=== PATIENT | male | born 1990 | race Caucasian/White ===

== ENCOUNTER 2018-07-20 17:49 | Observation (INO) | payer BC ==
[~2018-07-20] VITALS: Ht 182.9 cm; Wt 121.6 kg
[2018-07-20] MEDS ORDERED: VYVANSE70 MG PO (18:19)
[2018-07-20] MEDS ORDERED: CLONAZEPAM1 MG PO (18:19)
[2018-07-20] MEDS ORDERED: RISPERDAL4 MG PO (18:19)
[2018-07-20 18:38] LABS: BASOPHILS # (AUTO) 0.1 (0.0-0.1); BASOPHILS % 0.5 % (0.0-1.0); EOSINOPHILS # (AUTO) 0.4 (0.0-0.4); EOSINOPHILS % 3.9 % (0.0-6.0); HEMATOCRIT 42.1 % (38.2-49.6); HEMOGLOBIN 14.3 g/dL (14.0-18.0); LYMPHOCYTES # (AUTO) 2.5 (1.0-3.2); LYMPHOCYTES % 25.5 % (18.0-39.1); MEAN CORPUSCULAR HEMOGLOBIN 28.7 pg (28-32); MEAN CORPUSCULAR VOLUME 84.4 fL (81-99); MONOCYTES # (AUTO) 0.8 (0.2-0.8); MONOCYTES % 8.5 % (4.4-11.3); NEUTROPHILS # (AUTO) 5.9 (2.1-6.9); NEUTROPHILS % 61.2 % (38.7-80.0); PLATELET COUNT 306 x10e3/uL (140-360); RED BLOOD COUNT 4.99 x10e6/uL (4.3-5.7); RED CELL DISTRIBUTION WIDTH 12.7 % (11.7-14.4)
[2018-07-20] MEDS ORDERED: ENOXAPARIN SOD INJ 60 MG/0.6 ML SYR SC NR (18:45)
[2018-07-20 18:49] LABS: INR 0.91; PROTHROMBIN TIME 13.1 seconds (11.9-14.5)
[2018-07-20 18:50] LABS: PARTIAL THROMBOPLASTIN TIME 25.7 seconds (23.8-35.5)
[2018-07-20 18:57] LABS: ALANINE AMINOTRANSFERASE 34 IU/L (0-55); ALBUMIN 4.1 g/dL (3.5-5.0); ALBUMIN/GLOBULIN RATIO 1.2 (0.8-2.0); ALKALINE PHOSPHATASE 94 IU/L (40-150); ANION GAP 15.8 mmol/L (8-16); BLOOD UREA NITROGEN 13 mg/dL (7-26); BUN/CREATININE RATIO 13 (6-25); CALCIUM 9.8 mg/dL (8.4-10.2); CARBON DIOXIDE 22 mmol/L (22-29); CHLORIDE 103 mmol/L (98-107); CREATININE, SERUM 1.01 mg/dL (0.72-1.25); EST GLOMERULAR FILTRATION RATE > 60 ML/MIN (60-); GLUCOSE 108 mg/dL (74-118); POTASSIUM 3.8 mmol/L (3.5-5.1); SODIUM 137 mmol/L (136-145)
[2018-07-20] MEDS ORDERED: ENOXAPARIN SODIUM INJ 100 MG/ML SYR SC NR (20:29)
[2018-07-20] MEDS ORDERED: MORPHINE SULFATE 2 MG/ML SYR IV PRN (20:30)
[2018-07-20] MEDS ORDERED: ONDANSETRON HCL INJ 2 MG/ML VIAL IV PRN (20:30)
[2018-07-21 00:55] VITALS: BP 133/91
[2018-07-21 01:00] VITALS: BP 133/91
[2018-07-21 03:44] VITALS: BP 158/92
[2018-07-21 07:35] VITALS: BP 118/68
[2018-07-21 07:36] VITALS: BP 118/68
[2018-07-21] MEDS ORDERED: APIXABAN 5 MG TABLET PO SCH (09:30)
[2018-07-21] MEDS ORDERED: MORPHINE SULFATE INJ 4 MG/ML INJ IV PRN (09:30)
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
== END 2018-07-21 11:28 | disposition home or self-care (01) ==
LOC: ER 17:49 → ERHOLD 21:43 → IMCU 07-21 00:26
PROVIDERS: ADMIT Internal Medicine; ATTEND Internal Medicine
DX: I82.432 Acute embolism and thrombosis of left popliteal vein (principal); E66.9 Obesity, unspecified; Z68.36 Body mass index [BMI] 36.0-36.9, adult; I10 Essential (primary) hypertension; F95.2 Tourette's disorder; F98.8 Other specified behavioral and emotional disorders with onset usually occurring in childhood and adolescence; F41.9 Anxiety disorder, unspecified
CPT/HCPCS: 36415; 80053; 85025; 85610; 85730; 99284; G0378 ×2; J1650

== ENCOUNTER → 2018-07-20 | Outpatient (CLI) | payer BC ==
[~2018-07-20] MED LIST: CLONAZEPAM1 MG PO; RISPERDAL4 MG PO; VYVANSE70 MG PO
== END ==
LOC: RAD 16:31
PROVIDERS: ATTEND Podiatrist Foot & Ankle Surgery
DX: M79.662 Pain in left lower leg (principal); I82.812 Embolism and thrombosis of superficial veins of left lower extremity
CPT/HCPCS: 93971

== ENCOUNTER 2019-03-31 17:00 | Inpatient (IN) | payer BC, OTHER ==
[~2019-03-31] VITALS: Ht 182.9 cm; Wt 128.0 kg
[2019-03-31] MEDS ORDERED: FAMOTIDINE 20 MG/2 ML VIAL IV NR (17:15)
[2019-03-31] MEDS ORDERED: ACETAMINOPHEN 325 MG TAB PO ONE (17:15)
[2019-03-31] MEDS ORDERED: CLONIDINE HCL 0.1 MG TAB ONE (17:29)
[2019-03-31] MEDS ORDERED: CLONIDINE HCL 0.1 MG TAB PO ONE (17:30)
[2019-03-31] MEDS ORDERED: ACETAMINOPHEN 325 MG TAB ONE (17:30)
[2019-03-31] MEDS ORDERED: FAMOTIDINE 20 MG/2 ML VIAL IV ONE (17:30)
--- NOTE | 2019-03-31 17:30 | Diagnostic Imaging Report ---
Chest, 2 views, 03/31/2019. History: Shortness of breath. Comparison: None available. Findings: The cardiomediastinal silhouette and pulmonary vasculature are within normal limits. Minimal biapical pleural thickening is present. The lungs are clear without evidence of consolidation or pleural effusion. There is mild degenerative change in the thoracic spine. There are no acute osseous or soft tissue abnormalities. Impression: No acute cardiopulmonary abnormality. Signed by: Koko Romo on 03/31/2019 5:27 PM
[2019-03-31] MEDS: FAMOTIDINE 20 MG TAB PO SCH (18:01)
[2019-03-31] MEDS: ASPIRIN 325 MG TAB EC PO SCH (18:04)
[2019-03-31] MEDS ORDERED: ASPIRIN 325 MG TAB ONE (18:08)
--- OUTSIDE RECORDS SUMMARY | 2019-03-31 18:08 | XMS REPORT ---
Author Author [facility] Address Unknown Phone Unavailable Care Team Providers Care Global Compensation Analyst Name Role Phone David ALLEN Unavailable Unavailable Problems This patient has no known problems. Allergies, Adverse Reactions, Alerts This patient has no known allergies or adverse reactions. Medications This patient has no known medications. Results Test Description Test Time Test Comments Text Results Atomic Results Result Comments CXR 2 VIEW - HOPD 2019-03-31 17:26:00 [place] [address] Patient Name: SARAH GENTILE MR #: [id number] : 1990 Age/Sex: 29/M Req #: [id number] Adm Physician: Ordered by: CAMILLE ALLEN MD Report #: [id number] Location: [facility] Room/Bed: Procedure: [id number] HOPD/CXR 2 VIEW - HOPD Exam Date: 03/31/19 Exam Time: 1723 REPORT STATUS: Signed Chest, 2 views, 03/31/2019. History: S hortness of breath. Comparison: None available. Findings: The cardiomediastinal silhouette and pulmonary vasculature are within normal limits. Minimal biapical pleural thickening is present. The lungs are clear without evidence of consolidation or pleural effusion. There is mild degenerative change in the thoracic spine. There are no acute osseous or soft tissue abnormalities. Impression: No acute cardiopulmonary abnormality. Signed by: Kathi Romo on 03/31/2019 5:27 PM Dictated By: KATHI ROMO MD 26 Transcribed By: MELIDA on 03/31/191726 COPY TO: CAMILLE ALLEN MD
[2019-03-31] MEDS: METOPROLOL TARTRATE 25 MG TAB PO SCH (18:09)
[2019-03-31] MEDS ORDERED: METOPROLOL TARTRATE 50 MG TAB ONE (18:12)
--- NOTE | 2019-03-31 18:13 | NUR ---
[facility] CALLED FOR TRANSPORT 45MIN ETA
--- NOTE | 2019-03-31 19:03 | NUR ---
notified [facility] for eta orginal call for ems was @ 1813 update eta at 1900 was 30 eta.
--- NOTE | 2019-03-31 20:25 | NUR ---
PATIENT ARRIVED VIA STRETCHER FROM [facility]. CALL LIGHT WITHIN REACH. PATIENT IN NO DISTRESS.
[2019-03-31 20:48] VITALS: BP 129/89
[2019-03-31 21:28] VITALS: BP 129/89
[2019-03-31 21:42] LABS: CREATINE KINASE 860 IU/L (30-200)
[2019-04-01] VITALS (9 sets, daily range): BP systolic 134–142; BP diastolic 82–93
--- NOTE | 2019-04-01 01:44 | NUR ---
CALLED AND TALKED TO DR. CHACKO ABOUT PATIENT HAVING PAIN 7 OUT OF 10 IN HIS CHEST AND BACK. DR. CHACKO SAID "WHAT SHOULD I DO" AND I SAID CAN THE PATIENT HAVE PAIN MEDICATION SO THE DR ORDERED MORPHINE 2 MG Q4H, PRN AND NORCO 5 MG, Q6H PRN.
[2019-04-01] MEDS ORDERED: HYDROCODONE/APAP 5MG-325MG TAB PO PRN (01:45)
[2019-04-01] MEDS ORDERED: SODIUM CHLORIDE 0.9% 1000ML 1,000 ML IV SCH (01:50)
--- NOTE | 2019-04-01 01:50 | NUR ---
CALLED AND TALKED TO DR. CORREIA ABOUT PATIENT CK OF 860. DR. CORREIA SAID TO GIVE NORMAL SALINE AT 75 CC/HR
[2019-04-01] MEDS: MORPHINE SULFATE 2 MG/ML SYR 1ML IV PRN ×4 (03:37→22:05)
[2019-04-01] MEDS: METOPROLOL TARTRATE 25 MG TAB PO SCH ×2 (06:07→17:25)
[2019-04-01] MEDS: FAMOTIDINE 20 MG TAB PO SCH ×2 (06:07→17:26)
[2019-04-01 06:44] LABS: CREATINE KINASE MB 6.4 ng/mL (0-5.0)
[2019-04-01 07:03] LABS: CHOL/HDL RATIO 2.4 (3.9-4.7)
--- NOTE | 2019-04-01 07:27 | NUR ---
GAVE REPORT TO ONCOMING NURSE. CALL LIGHT WITHIN REACH. PATIENT IN BED ASLEEP.
[2019-04-01] MEDS: ASPIRIN 325 MG TAB EC PO SCH (08:42)
[2019-04-01] MEDS ORDERED: ADDERALL 20 MG20 MG PO (09:13)
[2019-04-01 09:59] LABS: BASOPHILS # (AUTO) 0.1 (0.0-0.1); BASOPHILS % 0.3 % (0.0-1.0); EOSINOPHILS # (AUTO) 0.1 (0.0-0.4); EOSINOPHILS % 0.5 % (0.0-6.0); HEMATOCRIT 41.1 % (38.2-49.6); HEMOGLOBIN 13.5 g/dL (14.0-18.0); LYMPHOCYTES # (AUTO) 1.5 (1.0-3.2); LYMPHOCYTES % 10.1 % (18.0-39.1); MEAN CORPUSCULAR HEMOGLOBIN 28.2 pg (28-32); MEAN CORPUSCULAR HGB CONC 32.8 g/dL (31-35); MONOCYTES # (AUTO) 1.3 (0.2-0.8); MONOCYTES % 8.9 % (4.4-11.3); NEUTROPHILS % 79.7 % (38.7-80.0); PLATELET COUNT 301 x10e3/uL (140-360); RED BLOOD COUNT 4.78 x10e6/uL (4.3-5.7); RED CELL DISTRIBUTION WIDTH 13.2 % (11.7-14.4)
[2019-04-01 10:15] LABS: ALANINE AMINOTRANSFERASE 40 IU/L (0-55); ALBUMIN 4.2 g/dL (3.5-5.0); ALBUMIN/GLOBULIN RATIO 1.4 (0.8-2.0); ALKALINE PHOSPHATASE 85 IU/L (40-150); ANION GAP 12.2 mmol/L (8-16); BLOOD UREA NITROGEN 15 mg/dL (7-26); BUN/CREATININE RATIO 16 (6-25); CALCIUM 9.9 mg/dL (8.4-10.2); CARBON DIOXIDE 24 mmol/L (22-29); CHLORIDE 99 mmol/L (98-107); CREATININE, SERUM 0.92 mg/dL (0.72-1.25); EST GLOMERULAR FILTRATION RATE > 60 ML/MIN (60-); GLUCOSE 114 mg/dL (74-118); POTASSIUM 5.2 mmol/L (3.5-5.1); SODIUM 130 mmol/L (136-145)
[2019-04-01] MEDS: CLONAZEPAM 1 MG TAB PO SCH (10:59)
[2019-04-01] MEDS: ENOXAPARIN SODIUM INJ 100 MG/ML SYR SC SCH ×2 (11:00→21:46)
[2019-04-01] MEDS: SODIUM CHLORIDE 0.9% 1000ML 1,000 ML IV SCH (11:00)
[2019-04-01] MEDS: SUCRALFATE 1 GM TAB PO SCH ×2 (11:00→17:25)
[2019-04-01] MEDS ORDERED: ONDANSETRON HCL INJ 2MG/ML 2ML 2 MG/ML VIAL IV PRN (11:00)
[2019-04-01 11:11] LABS: THYROID STIMULATING HORMONE 0.882 uIU/mL (0.350-4.940)
[2019-04-01] MEDS: (Amphet Asp/Amphet/D-Amphet (Adderall 20 Mg Tablet) 20 MG) PO SCH (13:00)
--- NOTE | 2019-04-01 13:10 | History and Physical ---
CHIEF COMPLAINT: Chest pain. HISTORY OF PRESENT ILLNESS: This is a 29-year-old male with known history of ADHD, anxiety. He also has Tourette's with tic syndrome, who presents to the emergency room with complaints of substernal chest pain that began yesterday morning. The patient reports that he was at work, felt this pressure-like pain on his chest wall and had difficulty breathing. He denies any nausea, vomiting, or any diarrhea. He reports no radiation of the chest pain. Reports more of a sharp pressure like someone sitting on his chest. The patient also reports having these hot flashes that occurred many months ago and reports that last night he had similar findings. He states that he started to sweat. He felt like his heart was racing and he had some nausea. No reports of any recent infection, cough, congestion, or any fever. His white count was normal as well. The patient was seen and evaluated at bedside on the medical floor. He is with his family present. The patient is currently doing well with no other complaints at this time. He does have some pain when he takes deep breaths during my examination. Vital signs were stable when I evaluated him. REVIEW OF SYSTEMS: Pertinent positives: Chest pressure, shortness of breath. Pertinent negatives: Denies any palpitation, nausea, vomiting, diarrhea, dysuria, hematuria, frequency, urgency, lightheadedness, dizziness, abdominal pain, headaches, cough, congestion, fever, or any other complaints. The rest of 14-point review of systems are reviewed with the patient and are negative. ALLERGIES: NO KNOWN DRUG ALLERGIES. HOME MEDICATIONS: He takes clonazepam 1 mg daily. He also takes Adderall 20 mg p.o. b.i.d. PAST MEDICAL HISTORY: He has Tourette's with tic syndrome, anxiety, ADHD. PAST SURGICAL HISTORY: Reports none. FAMILY HISTORY: Hypertension, diabetes. SOCIAL HISTORY: No drugs. No alcohol. Does not smoke. Good social support. He is . PHYSICAL EXAMINATION: VITAL SIGNS: Temperature is 97.2, pulse 80, respiratory rate is 20, blood pressure 134/82, pulse ox 96% on room air. GENERAL: Not in acute distress. Alert and oriented x3. Cooperative on examination. HEENT: Head; normocephalic, atraumatic. Eyes; pupils are equal, round, and reactive to light bilaterally. Extraocular movements intact bilaterally. Throat; no evidence of erythema or exudates in the posterior pharynx. Has poor dentition. NECK: Supple. Good range of motion. PULMONARY: Clear to auscultation bilaterally. No wheezing, no rales, no rhonchi, no crackles appreciated. CARDIOVASCULAR: Positive S1 and S2. No murmurs, rubs, or gallops appreciated. ABDOMEN: Soft, nondistended, nontender to palpation. Bowel sounds present. MUSCULOSKELETAL: Strength is 5/5 throughout. No evidence of any muscle deficits on examination. No weakness appreciated. NEUROLOGIC: Cranial nerve II through XII grossly intact. No evidence of any neurological deficits on exam. SKIN: Intact. Warm to touch. Good cap refill. PSYCHIATRIC: Normal affect and mood. EXTREMITIES: No edema. Good range of motion throughout. LABORATORY DATA: CBC is pending. His troponins were all negative. CK is 558, CK-MB 6.4, LDL was 66. IMAGING STUDIES: Chest x-ray was found to be negative. IMPRESSION: 1. Chest pain, likely to be atypical in nature. 2. Pleuritic chest pain with underlying shortness of breath. 3. Attention deficit hyperactivity disorder with Tourette's with tic syndrome. 4. "Hot flashes" unknown etiology with no fever associated. PLAN: At this time, his troponins were found to be negative. We will go ahead and order lipid panel. Get an A1c as well and a TSH. Cardiology has been consulted. I will go ahead and order a CT of his chest because his pain is more described as a pleuritic pain upon inspiration. We will also get a pulmonary consultation as well. I also discussed with him that is it possible that his ADHD drugs need to be titrated up, but he reports to me that he has been on this particular medication for years, but despite saying that he states that he needs to see a psychiatrist and he has seen them in many years. It may be a component of an anxiety related to his underlying chest pain as well, but we will do further workup on that. I will go ahead and get Pulmonary and Cardiology consultation. Get repeat labs now. Add Protonix b.i.d. and Carafate as this could be described as acid reflux as well. Further workup will be added once the clinical course evolves and get further recommendations by the consultants. I am not sure exactly what he is describing in terms of his "hot flashes" despite that there is no recorded fever and his vitals were essentially within normal range. We will repeat labs and follow closely. MD GLORIA Barraza/ZEINA /[id number]
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
--- NOTE | 2019-04-01 14:53 | Diagnostic Imaging Report ---
Exam: CT chest Clinical history: Chest pain, history of DVT Technique: Helical images of the chest were obtained after IV contrast administration using the pulmonary embolus protocol Findings: There is no evidence of intraluminal filling defect in the visualized pulmonary arteries to suggest acute pulmonary embolism. Airway opacities are noted in bilateral lung bases, left greater than right which may represent pneumonitis. There is no evidence of pleural effusion, pneumothorax, pulmonary nodule, or interstitial disease. The tracheobronchial tree is clear. The cardiac size is within normal limits. The right vessels are normal in caliber and orientation. There is no evidence of mediastinal or hilar lymphadenopathy. The visualized upper abdominal solid organs are unremarkable. Impression: 1. No CT evidence of acute pulmonary embolism. 2. Bibasilar airway opacities which may represent pneumonitis. Signed by: Dr. Preston Ta MD on 04/01/2019 2:50 PM
[2019-04-01] MEDS ORDERED: IOPAMIDOL 370 MG/ML 200 ML INFUS..BTL INJ ONE (14:59)
[2019-04-01] MEDS ORDERED: SODIUM CHLORIDE 0.9% 50ML 50 ML ONE (14:59)
--- NOTE | 2019-04-01 15:41 | Consultation ---
DATE OF CONSULTATION: 04/01/2019 Pulmonary Medicine Consult REASON FOR REFERRAL: Chest pain. HISTORY OF PRESENT ILLNESS: Mr. Escobedo is a pleasant 29-year-old gentleman with chest pain. The patient presented to [facility] Emergency Room on March 31, 2019 with chest pain. The patient with history of travel in July 2018, that was prolonged in automobile vehicle after which he had leg pain. At that time, he had a distal posterior tibialis vein and lesser saphenous vein thrombus that was noted. He was treated with 3 months of Eliquis for deep venous thrombosis. He stopped medicines he believes in October or November. This time, he denies any recent travel. There is onset of pain at 3 a.m. when he woke up and that is around the time he wakes up to get to work. The pain is severe. It is with pleuritic quality. It hurts to take deep breaths. No leg pain. I am consulted. PAST MEDICAL HISTORY: DVT July 2018, provoked after long trip, obesity, anxiety, attention deficit disorder, Tourette, and hypertension. MEDICATIONS: He is on Adderall 20 mg twice a day and clonazepam 1 mg each day. ALLERGIES: NO KNOWN DRUG ALLERGIES. SOCIAL HISTORY: The patient denies drinking. Denies drugs. He smokes rarely, mostly nonsmoker. 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 FAMILY HISTORY: Noncontributory. No family members have history of clots. REVIEW OF SYSTEMS: GENERAL: No weight changes. OPHTHALMOLOGIC: No double vision. ENT: No buzzing in the ears. ENDOCRINE: No known thyroid disease. PULMONARY: No asthma. CARDIAC: No heart attack. GI: No diarrhea. : No blood in urine. DERMATOLOGIC: No rash. MUSCULOSKELETAL: No significant arthritis. NEUROLOGIC: No seizures. PHYSICAL EXAMINATION: VITAL SIGNS: Afebrile. Vital signs noted and reviewed per the chart record. Heart rate 80, 134/82 blood pressure, and 96% oxygen saturation. GENERAL: The patient can barely complete short phrases due to difficulty taking deep breaths. Slightly anxious, oriented x3. HEENT: Normocephalic and atraumatic. NECK: Supple. Throat midline. LUNGS: Bilateral air entry is diminished, as he has decreased effort due to pain. No rhonchi. No wheezing. CARDIOVASCULAR: S1 and S2. No murmurs, rubs, or gallops. ABDOMEN: Soft and nontender. EXTREMITIES: No clubbing. No cyanosis. There is no edema. INTEGUMENT: No rash. No purpura. LABORATORY DATA: 5.2 potassium, 130 sodium, 15 BUN, and 0.9 creatinine. 15 white count, 41 hematocrit, and 301 platelets. CK 860, albumin 4.2, globulin 3.1. Troponin first one was negative, second one came back at 0.0081. IMPRESSION AND PLAN: 1. Chest pain. 2. Mild rhabdomyolysis. 3. History of deep venous thrombosis. Suspect this will be pulmonary embolism. 4. Attention deficit disorder, on Adderall. Rule out drug reaction. 5. History of Tourette's syndrome. 6. Hypertension. 7. Anxiety disorder. 8. Obesity. I agree with empiric Lovenox. Get CTA to rule out PE. Urinary drug screen. Ensure CK gets flushed out. If it is not pulmonary embolism, then we need to assess his medications or other issues. Thank you very much, Dr. Woody, for allowing me a chance to participate in the care of Mr. Escobedo. Please call for any questions. MD AARON Kinney/ELIUDL /[id number]
[2019-04-01] MEDS: PANTOPRAZOLE SOD 40 MG TABEC PO SCH (17:25)
[2019-04-02] VITALS (7 sets, daily range): BP systolic 123–151; BP diastolic 68–97
[2019-04-02] MEDS: CEFTRIAXONE SOD 1 GM/NS 50 ML 50 ML IV SCH ×2 (02:03→23:52)
[2019-04-02] MEDS: SODIUM CHLORIDE 0.9% 1000ML 1,000 ML IV SCH ×2 (02:03→05:45)
[2019-04-02] MEDS: AZITHROMYCIN 500MG/NS 250 ML 250 ML IV SCH (02:48)
[2019-04-02] MEDS: MORPHINE SULFATE 2 MG/ML SYR 1ML IV PRN (04:04)
[2019-04-02] MEDS: METOPROLOL TARTRATE 25 MG TAB PO SCH ×2 (05:57→17:27)
[2019-04-02] MEDS: FAMOTIDINE 20 MG TAB PO SCH ×2 (05:57→17:27)
[2019-04-02 06:04] LABS: BASOPHILS # (AUTO) 0.1 (0.0-0.1); BASOPHILS % 0.6 % (0.0-1.0); EOSINOPHILS # (AUTO) 0.1 (0.0-0.4); EOSINOPHILS % 1.2 % (0.0-6.0); HEMATOCRIT 38.9 % (38.2-49.6); LYMPHOCYTES # (AUTO) 2.3 (1.0-3.2); LYMPHOCYTES % 20.8 % (18.0-39.1); MEAN CORPUSCULAR HEMOGLOBIN 28.5 pg (28-32); MEAN CORPUSCULAR HGB CONC 33.4 g/dL (31-35); MEAN CORPUSCULAR VOLUME 85.3 fL (81-99); MONOCYTES # (AUTO) 1.3 (0.2-0.8); MONOCYTES % 12.2 % (4.4-11.3); NEUTROPHILS % 64.6 % (38.7-80.0); PLATELET COUNT 239 x10e3/uL (140-360); RED BLOOD COUNT 4.56 x10e6/uL (4.3-5.7); RED CELL DISTRIBUTION WIDTH 13.2 % (11.7-14.4)
[2019-04-02 06:30] LABS: ALANINE AMINOTRANSFERASE 28 IU/L (0-55); ALBUMIN 3.5 g/dL (3.5-5.0); ALBUMIN/GLOBULIN RATIO 1.1 (0.8-2.0); ALKALINE PHOSPHATASE 73 IU/L (40-150); ANION GAP 12.2 mmol/L (8-16); BLOOD UREA NITROGEN 11 mg/dL (7-26); BUN/CREATININE RATIO 12 (6-25); CALCIUM 9.4 mg/dL (8.4-10.2); CARBON DIOXIDE 26 mmol/L (22-29); CHLORIDE 103 mmol/L (98-107); CREATININE, SERUM 0.91 mg/dL (0.72-1.25); EST GLOMERULAR FILTRATION RATE > 60 ML/MIN (60-); GLUCOSE 103 mg/dL (74-118); POTASSIUM 4.2 mmol/L (3.5-5.1); SODIUM 137 mmol/L (136-145)
--- NOTE | 2019-04-02 06:58 | NUR ---
Gave report to oncoming nurse. call light within reach. patient asleep in bed.
[2019-04-02] MEDS: (Amphet Asp/Amphet/D-Amphet (Adderall 20 Mg Tablet) 20 MG) PO SCH ×2 (08:00→13:00)
[2019-04-02] MEDS: ASPIRIN 325 MG TAB EC PO SCH (08:10)
[2019-04-02] MEDS: CLONAZEPAM 1 MG TAB PO SCH (08:10)
[2019-04-02] MEDS: SUCRALFATE 1 GM TAB PO SCH ×3 (08:10→17:27)
[2019-04-02] MEDS: PANTOPRAZOLE SOD 40 MG TABEC PO SCH ×2 (08:10→17:27)
[2019-04-02 10:38] LABS: BILIRUBIN,URINE NEGATIVE (NEGATIVE); CLARITY,URINE CLEAR (CLEAR); COLOR,URINE YELLOW (YELLOW); KETONES,URINE NEGATIVE (NEGATIVE); LEUKOCYTE ESTERASE ,URINE NEGATIVE (NEGATIVE); NITRITE,URINE NEGATIVE (NEGATIVE); PROTEIN,URINE DIPSTICK NEGATIVE (NEGATIVE); URINE UROBILINOGEN 0.2 mg/dL (0.2 - 1)
[2019-04-02 10:48] LABS: AMPHETAMINES SCREEN,URINE NEGATIVE (NEGATIVE); BENZODIAZEPINES SCREEN,URINE NEGATIVE (NEGATIVE); PHENCYCLIDINE SCREEN,URINE NEGATIVE (NEGATIVE)
[2019-04-02 11:07] LABS: BACTERIA,URINE FEW /HPF; EPITHELIAL CELLS,URINE FEW /LPF; WBC,URINE (MAN) 0-5 /HPF (0-5)
--- NOTE | 2019-04-02 12:50 | Progress Note ---
DATE: 04/02/2019 Medicine Progress Note SUBJECTIVE: The patient states he feels much better after antibiotics were started. CT imaging is concerning for underlying pneumonitis, likely to be new onset of pneumonia. He is currently doing much better today with no complaints. PHYSICAL EXAMINATION: VITAL SIGNS: Temperature is 96, pulse 98, respiratory rate is 21, blood pressure 139/70, pulse ox 96% on room air. GENERAL: Not in acute distress. Alert and oriented x3. Cooperative on examination. HEENT: Head; normocephalic, atraumatic. Eyes; pupils are equal, round, and reactive to light bilaterally. Extraocular movements intact bilaterally. Throat; no evidence of erythema or exudates in the posterior pharynx. Has poor dentition. NECK: Supple. Good range of motion. PULMONARY: Clear to auscultation bilaterally. No wheezing, no rales, no rhonchi, no crackles appreciated. CARDIOVASCULAR: Positive S1 and S2. No murmurs, rubs, or gallops appreciated. ABDOMEN: Soft, nondistended, nontender to palpation. Bowel sounds present. MUSCULOSKELETAL: Strength is 5/5 throughout. No evidence of any muscle deficits on examination. No weakness appreciated. NEUROLOGIC: Cranial nerve II through XII grossly intact. No evidence of any neurological deficits on exam. SKIN: Intact. Warm to touch. Good cap refill. PSYCHIATRIC: Normal affect and mood. EXTREMITIES: No edema. Good range of motion throughout. LABORATORY DATA: Lab findings show white count 10.8, hemoglobin 13, hematocrit is 38, and platelets of 239. Chemistry; sodium 137, potassium 4.2, chloride 103, bicarb 26, anion gap of 12, BUN is 11, creatinine 0.9, glucose 103, calcium 9.4, total bilirubin 0.6. LFTs within normal range. Albumin was 3.5. BNP 23. CTA of the chest shows no CT evidence of acute pulmonary embolism. But there is evidence of bibasilar airway opacities which may represent pneumonitis. IMPRESSION: 1. Chest pain, atypical in nature. 2. Community-acquired pneumonia, explains is pleuritic pain. 3. Attention deficit hyperactivity disorder with Tourette's with tic syndrome. 4. Hot flashes, likely to be from underlying pneumonia which now are resolved. PLAN: At this time Cardiology is following. No further workup needed. A 2D echo concerning for underlying pulmonary hypertension. Pulmonary is following as well, treating for community-acquired pneumonia. Would like to keep the patient for an additional 2 to 3 more days to monitor him very closely on IV antibiotic therapy, which I agree with. He reports now he is feeling much better now after the antibiotics were started. He is afebrile, white count normal. I would continue with Rocephin and azithromycin for now. Continue same home medications and we will get repeat labs in the morning. MD GLORIA Barraza/ZEINA /[id number]
--- NOTE | 2019-04-02 13:29 | NUR ---
PATIENT ARRIVED TO ROOM 290 IN STABLE CONDITION. ORIENTED TO ROOM AND POLICIES. CALL LIGHT WITHIN REACH. BED IN THE LOWEST POSITION.
[2019-04-02] MEDS: ENOXAPARIN SOD INJ 40 MG/0.4 ML SYR SC SCH (17:27)
--- NOTE | 2019-04-02 18:45 | NUR ---
Received bedside report from day shift RN. The patient is sitting up on the bed, not in distress. Denied chest pain. Friend is at bedside. Call light within reach, bed height low, side rails up x2 and wheels lock.
--- NOTE | 2019-04-02 19:14 | NUR ---
Report given to oncoming nurse. Patient is resting in bed, no acute distress noted. Call light within reach. Bed in the lowest position.
[2019-04-02] MEDS ORDERED: IBUPROFEN 200 MG TAB PO PRN (20:45)
[2019-04-02] MEDS ORDERED: SODIUM CHLORIDE 0.9% 250ML 250 ML ONE (21:01)
--- NOTE | 2019-04-02 23:17 | NUR ---
PULMONARY MEDICINE DATE OF ENCOUNTER: 04/02/2019 SUBJECTIVE: ct CHEST was reviewed - 38 mm mPA trunk, aorta 32 mm. bilateral pneumonitis pattern. no pe patient still with pain. slightly better abx started last night REVIEW OF SYSTEMS: no headache, no rash PHYSICAL EXAMINATION: VITAL SIGNS: Afebrile. Vital signs reviewed per the chart record. GENERAL: NAD, AO x 3 HEENT: Normocephalic and atraumatic. NECK: Supple. Throat midline. LUNGS: Bilateral air entry mildly diminished. No rhonchi. No wheezing. CARDIOVASCULAR: S1 and S2. No murmurs, rubs, or gallops. ABDOMEN: Soft, nontender. EXTREMITIES: No clubbing. No cyanosis. no edema. INTEGUMENT: No rash. No purpura. LABORATORY DATA: 4.2 k , cr .91, 10.8 wbc, 38.9 hct IMPRESSION AND PLAN: 1. Chest pain. Pleurisy suggested 2. bilateral pneumonitis, CAP. 3. significantly enlarged pulmonary artery, suggesting possible pulmonary HTN. --unique case where differential diagnosis includes: iPAH, CTEPH, stimulant related, KIMBER 4. Mild rhabdomyolysis. 5. History of deep venous thrombosis. 6. Attention deficit disorder, on Adderall. Rule out drug reaction. 7. History of Tourette's syndrome. 8. Hypertension. 9. Anxiety disorder. 10. Obesity. 11. KIMBER, non adherent to treatment. reported hardware issues partly Lovenox ppx IV abx IVF bronchodilator trial steroids x 1 outpatient pulmonary hypertension workup after pnuemonia has time to clear echo was non-diagnostic for pulmonary HTN, but no large TR jet Thank you very much, Dr. Woody, for allowing me a chance to participate in the care of Mr. Escobedo. Please call for any questions.
[2019-04-03] VITALS (8 sets, daily range): BP systolic 116–138; BP diastolic 61–78
[2019-04-03] MEDS: AZITHROMYCIN 500MG/NS 250 ML 250 ML IV SCH (01:18)
[2019-04-03] MEDS: METOPROLOL TARTRATE 25 MG TAB PO SCH ×2 (05:06→17:43)
[2019-04-03] MEDS: FAMOTIDINE 20 MG TAB PO SCH ×2 (05:06→17:43)
[2019-04-03 06:07] LABS: BASOPHILS # (AUTO) 0.1 (0.0-0.1); BASOPHILS % 0.7 % (0.0-1.0); EOSINOPHILS # (AUTO) 0.2 (0.0-0.4); EOSINOPHILS % 2.7 % (0.0-6.0); HEMATOCRIT 41.7 % (38.2-49.6); HEMOGLOBIN 13.8 g/dL (14.0-18.0); LYMPHOCYTES # (AUTO) 2.1 (1.0-3.2); LYMPHOCYTES % 23.6 % (18.0-39.1); MEAN CORPUSCULAR HEMOGLOBIN 28.1 pg (28-32); MEAN CORPUSCULAR HGB CONC 33.1 g/dL (31-35); MEAN CORPUSCULAR VOLUME 84.9 fL (81-99); MONOCYTES # (AUTO) 1.2 (0.2-0.8); MONOCYTES % 12.9 % (4.4-11.3); NEUTROPHILS # (AUTO) 5.3 (2.1-6.9); NEUTROPHILS % 59.5 % (38.7-80.0); PLATELET COUNT 271 x10e3/uL (140-360); RED BLOOD COUNT 4.91 x10e6/uL (4.3-5.7); RED CELL DISTRIBUTION WIDTH 13.1 % (11.7-14.4)
[2019-04-03 06:24] LABS: BLOOD UREA NITROGEN 11 mg/dL (7-26); BUN/CREATININE RATIO 12 (6-25); CALCIUM 9.7 mg/dL (8.4-10.2); CARBON DIOXIDE 25 mmol/L (22-29); CHLORIDE 106 mmol/L (98-107); CREATININE, SERUM 0.92 mg/dL (0.72-1.25); EST GLOMERULAR FILTRATION RATE > 60 ML/MIN (60-); GLUCOSE 90 mg/dL (74-118); SODIUM 141 mmol/L (136-145)
--- NOTE | 2019-04-03 07:09 | NUR ---
Received patient from night nurse. Patient resting in bed, AOx3. No complaints at this time, no signs of distress. Bed locked and in low position, call light placed within reach. Will continue to monitor.
[2019-04-03] MEDS: (Amphet Asp/Amphet/D-Amphet (Adderall 20 Mg Tablet) 20 MG) PO SCH ×2 (08:00→13:00)
[2019-04-03] MEDS: SUCRALFATE 1 GM TAB PO SCH ×3 (08:37→17:43)
[2019-04-03] MEDS: PANTOPRAZOLE SOD 40 MG TABEC PO SCH ×2 (08:37→17:43)
[2019-04-03] MEDS: ASPIRIN 325 MG TAB EC PO SCH (08:37)
[2019-04-03] MEDS ORDERED: LEVAQUIN500 MG PO (13:37)
[2019-04-03] MEDS ORDERED: PROAIR HFA INH8.5 GM INH (13:37)
--- NOTE | 2019-04-03 13:42 | NUR ---
PULMONARY MEDICINE DATE OF ENCOUNTER: 04/03/2019 SUBJECTIVE: pain is much better RA io2 eating well able to walk REVIEW OF SYSTEMS: no headache, no rash PHYSICAL EXAMINATION: VITAL SIGNS: Afebrile. Vital signs reviewed per the chart record. GENERAL: NAD, AO x 3 HEENT: Normocephalic and atraumatic. NECK: Supple. Throat midline. LUNGS: Bilateral air entry mildly diminished. No rhonchi. No wheezing. CARDIOVASCULAR: S1 and S2. No murmurs, rubs, or gallops. ABDOMEN: Soft, nontender. EXTREMITIES: No clubbing. No cyanosis. no edema. INTEGUMENT: No rash. No purpura. LABORATORY DATA: 4.0 k, cr .092. wbc, 42 hct, plt 271 IMPRESSION AND PLAN: 1. Chest pain. Pleurisy suggested 2. bilateral pneumonitis, CAP. 3. significantly enlarged pulmonary artery, suggesting possible pulmonary HTN. --unique case where differential diagnosis includes: iPAH, CTEPH, stimulant related, KIMBER secondary 4. Mild rhabdomyolysis. 5. Hx deep venous thrombosis. 6. Attention deficit disorder, on Adderall. Cant rule out drug reaction. 7. History of Tourette's syndrome. 8. Hypertension. 9. Anxiety disorder. 10. Obesity. 11. KIMBER, non-adherent to treatment. reported hardware issues Lovenox ppx IV abx bronchodilator trial outpatient pulmonary hypertension workup after pnuemonia has time to clear Will need outpatient CT chest to ensure the infiltrates clear, given the exact semblance of this CT chest to other classic pulmonary HTN related processes echo was non-diagnostic for pulmonary HTN, but no large TR jet patient highly recommended to resume CPAP. discussed ways for patient to troubleshoot the hardware issues Thank you very much, Dr. Woody, for allowing me a chance to participate in the care of Mr. Escobedo. Please call for any questions.
--- NOTE | 2019-04-03 16:02 | Progress Note ---
DATE: 04/03/2019 Medicine Progress Note SUBJECTIVE: The patient is doing much better today. He has no complaints. He is breathing better. No chest pain. No pleuritic pain. He is tolerating diet well. He is ambulating with no issues. PHYSICAL EXAMINATION: VITAL SIGNS: Temperature is 96.8, pulse 90, respiratory rate is 20, blood pressure 119/65, and pulse ox 94% on room air. GENERAL: Not in acute distress. Alert and oriented x3. Cooperative on examination. HEENT: Head, normocephalic and atraumatic. Eyes, pupils are equal, round, and reactive to light bilaterally. Extraocular movements are intact bilaterally. Throat, no evidence of erythema or exudates in the posterior pharynx. Has poor dentition. NECK: Supple. Good range of motion. PULMONARY: Clear to auscultation bilaterally. No wheezing, no rales, and no rhonchi. No crackles appreciated. CARDIOVASCULAR: Positive S1 and S2. No murmurs, rubs, or gallops appreciated. ABDOMEN: Soft, nondistended, and nontender to palpation. Bowel sounds present. MUSCULOSKELETAL: Strength is 5/5 throughout. No evidence of any muscle deficits on examination. NEUROLOGICAL: Alert and oriented x3 with no issues. SKIN: Intact. Warm to touch. Good cap refill. PSYCHIATRIC: Normal affect and mood. EXTREMITIES: No edema. Good range of motion throughout. LAB FINDINGS: Show CBC reviewed and stable. Chemistry reviewed and stable and normal. IMPRESSION: 1. Chest pain, atypical in nature. 2. Community-acquired pneumonia, explains his pleuritic pain, now improved. 3. Attention deficit hyperactivity disorder with tic syndrome. PLAN: At this time, the patient is doing extremely well with no complaints. Cardiology is following. No further workup needed. Pulmonary is following, will need outpatient workup. Continue with antibiotics for now. He is afebrile. Labs are stable. We will discharge tomorrow if he is doing well and cleared by consultants on oral antibiotics and outpatient followup closely. MD GLORIA Barraza/ZEINA /[id number]
[2019-04-03] MEDS: ENOXAPARIN SOD INJ 40 MG/0.4 ML SYR SC SCH (17:45)
--- NOTE | 2019-04-03 18:45 | NUR ---
Received bedside report from day shift RN. The patient is sitting up in bed, not in distress. The patient discussed the possibility of going home tomorrow per Dr. Malcolm and follow up with Dr. Poole. Call light with reach, bed height low, wheels lock
--- NOTE | 2019-04-03 19:14 | NUR ---
Handoff report given to night nurse. Patient AOx3, sitting up in bed, no signs of distress, no c/o pain. Bed locked and in low position, call light placed within reach.
[2019-04-03] MEDS ORDERED: CLONAZEPAM 1 MG TAB PO SCH (21:00)
[2019-04-04] MEDS: CEFTRIAXONE SOD 1 GM/NS 50 ML 50 ML IV SCH (00:02)
[2019-04-04] MEDS: AZITHROMYCIN 500MG/NS 250 ML 250 ML IV SCH (00:02)
[2019-04-04 00:31] VITALS: BP 127/65
[2019-04-04] MEDS ORDERED: SODIUM CHLORIDE 0.9% 250ML 250 ML ONE (01:09)
[2019-04-04] MEDS: FAMOTIDINE 20 MG TAB PO SCH (05:25)
[2019-04-04] MEDS: METOPROLOL TARTRATE 25 MG TAB PO SCH (05:25)
[2019-04-04 06:10] VITALS: BP 119/77
[2019-04-04 06:19] LABS: BASOPHILS # (AUTO) 0.1 (0.0-0.1); BASOPHILS % 0.7 % (0.0-1.0); EOSINOPHILS # (AUTO) 0.3 (0.0-0.4); EOSINOPHILS % 2.5 % (0.0-6.0); HEMATOCRIT 41.6 % (38.2-49.6); HEMOGLOBIN 13.7 g/dL (14.0-18.0); LYMPHOCYTES # (AUTO) 1.8 (1.0-3.2); MEAN CORPUSCULAR HGB CONC 32.9 g/dL (31-35); MEAN CORPUSCULAR VOLUME 85.1 fL (81-99); MONOCYTES % 9.6 % (4.4-11.3); NEUTROPHILS # (AUTO) 7.2 (2.1-6.9); NEUTROPHILS % 69.6 % (38.7-80.0); PLATELET COUNT 296 x10e3/uL (140-360); RED BLOOD COUNT 4.89 x10e6/uL (4.3-5.7); RED CELL DISTRIBUTION WIDTH 12.8 % (11.7-14.4)
[2019-04-04 06:51] LABS: ANION GAP 11.3 mmol/L (8-16); BLOOD UREA NITROGEN 12 mg/dL (7-26); BUN/CREATININE RATIO 13 (6-25); CALCIUM 9.9 mg/dL (8.4-10.2); CARBON DIOXIDE 27 mmol/L (22-29); CHLORIDE 105 mmol/L (98-107); CREATININE, SERUM 0.95 mg/dL (0.72-1.25); EST GLOMERULAR FILTRATION RATE > 60 ML/MIN (60-); GLUCOSE 101 mg/dL (74-118); POTASSIUM 4.3 mmol/L (3.5-5.1); SODIUM 139 mmol/L (136-145)
--- NOTE | 2019-04-04 06:54 | NUR ---
RECEIVED PATIENT RESTING IN BED. NO ACUTE DISTRESS NOTED, RESPIRATIONS EVEN AND UNLABORED. CALL LIGHT WITHIN REACH. BED IN THE LOWEST POSITION.
[2019-04-04 07:52] VITALS: BP 122/60
[2019-04-04] MEDS: (Amphet Asp/Amphet/D-Amphet (Adderall 20 Mg Tablet) 20 MG) PO SCH (08:00)
[2019-04-04] MEDS: ASPIRIN 325 MG TAB EC PO SCH (09:29)
[2019-04-04] MEDS: SUCRALFATE 1 GM TAB PO SCH (09:29)
[2019-04-04] MEDS: PANTOPRAZOLE SOD 40 MG TABEC PO SCH (09:29)
[2019-04-04 10:15] VITALS: BP 122/60
[2019-04-04 11:17] VITALS: BP 123/74
--- NOTE | 2019-04-04 12:05 | NUR ---
RECEIVED DC ORDER FROM DR. CHACKO, PATIENT IS IN STABLE CONDITION. IV LINE TO LEFT AC DCD WITH TIP INTACT, PRESSURE APPLIED TO SITE, NO BLEEDING NOTED. DISCHARGE TEACHING PROVIDED TO PATIENT, HE VERBALIZED UNDERSTANDING. DISCHARGE FOLDER WITH PRESCRIPTIONS ON HAND, PERSONAL ITEMS ON HAND. PATIENT ACCOMPANIED TO PRIVATE AUTO VIA WHEELCHAIR BY STAFF.
--- NOTE | 2019-04-04 13:15 | NUR ---
PULMONARY MEDICINE DATE OF ENCOUNTER: 04/04/2019 SUBJECTIVE: 95% RA fio2 walking no chest pain REVIEW OF SYSTEMS: no headache, no rash PHYSICAL EXAMINATION: VITAL SIGNS: Vital signs reviewed per the chart record. GENERAL: NAD, AO x 3 HEENT: Normocephalic and atraumatic. NECK: Supple. Throat midline. LUNGS: Bilateral air entry mildly diminished. No rhonchi. No wheezing. CARDIOVASCULAR: S1 and S2. No murmurs, rubs, or gallops. ABDOMEN: Soft, nontender. EXTREMITIES: No clubbing. No cyanosis. no edema. INTEGUMENT: No rash. No purpura. LABORATORY DATA: 4.3 k, cr .95. 10 wbc. IMPRESSION AND PLAN: 1. Chest pain. Pleurisy suggested 2. bilateral pneumonitis, CAP. 3. significantly enlarged pulmonary artery, suggesting possible pulmonary HTN. --unique case where differential diagnosis includes: iPAH, CTEPH, stimulant related, KIMBER secondary 4. Mild rhabdomyolysis. 5. Hx deep venous thrombosis. 6. Attention deficit disorder, on Adderall. Cant rule out drug reaction. 7. History of Tourette's syndrome. 8. Hypertension. 9. Anxiety disorder. 10. Obesity. 11. KIMBER, non-adherent to treatment. reported hardware issues Lovenox ppx PO abx bronchodilator trial outpatient pulmonary hypertension workup after pneumonia has time to clear Will need outpatient CT chest to ensure the infiltrates clear, given the exact semblance of this CT chest to other classic pulmonary HTN related processes echo was non-diagnostic for pulmonary HTN, but no large TR jet patient highly recommended to resume CPAP. discussed ways for patient to troubleshoot the hardware issues d/c home, outpatient follow up Thank you very much, Dr. Woody, for allowing me a chance to participate in the care of Mr. Escobedo. Please call for any questions.
--- NOTE | 2019-04-05 01:42 | Discharge Summary ---
FINAL DISCHARGE DIAGNOSES: 1. Atypical chest pain. 2. Community-acquired pneumonia. 3. Pleuritic chest pain secondary to community-acquired pneumonia, resolved. 4. Attention deficit hyperactivity disorder with Tourette's syndrome. CONSULTANTS: He had Cardiology and Pulmonary. VITAL SIGNS: Temperature is 96.6, pulse 75, respiratory rate 19, blood pressure 122/60, pulse ox 97% on room air. LAB FINDINGS: Show white count 10.3, hemoglobin 13.7, hematocrit is 41.6, and platelets of 296. Chemistry; sodium 139, potassium 4.3, chloride 105, bicarb 27, anion gap of 11, BUN is 12, creatinine is 0.95, glucose is 101, calcium is 9.9, total bilirubin is 0.6, AST is 16, ALT is 28. CK on admission was found to be 860 downtrended to 207 on 04/02/2019. BNP 23. His troponins were all negative. LDL was 66. TSH is 0.88. Lipase level was 25. Urinalysis negative. Urine drug screen positive for opioids. MICROBIOLOGY: None. IMAGING STUDIES: Chest x-ray, no acute cardiopulmonary abnormality. CTA of the chest, there was no evidence of any pulmonary embolism. There was bibasilar airway opacities, which may represent pneumonitis. Bilateral lower extremity venous Doppler was found to be negative for any DVT. A 2D echo shows an EF of 65%. HOSPITAL COURSE: A 29-year-old male, who [facility] with complaints of chest pain, ongoing for several days prior to arrival to the hospital. He also has reported subjective fever with chest pressure. The patient was admitted and Cardiology was consulted. Cardiac enzymes were found to be negative. A 2D echo shows an EF of 65%. After further discussion with the patient, he reports that he has a history of pulmonary embolism, for which a CT of the chest was performed, found to be negative for any pulmonary embolism. It did show evidence of a bibasilar airway opacity, which may represent pneumonitis. The patient was complaining of pleuritic chest pain. I did consult with Pulmonary and the patient was treated for underlying community-acquired pneumonia. The patient was on IV antibiotics, in which his symptoms resolved and improved. He did have lower extremity venous Doppler negative for DVT. Cardiology cleared the patient for discharge with no further workup needed. As per Pulmonary, the patient needs further workup as an outpatient for obstructive sleep apnea as well. This was discussed with the patient at bedside as well. He did improve with IV antibiotic therapy. He was discharged on oral Levaquin as well as per Pulmonary recommendations. He has been cleared for discharge by Pulmonary as well. On the day of discharge, vital signs were stable, labs reviewed and stable. The patient was seen, evaluated, and examined thoroughly on the day of discharge. No other complaints. The patient verbalized understanding and agreed to plan of care to follow up accordingly as an outpatient with the primary care physician in 1 week and the lead accountant in 2 weeks' time. The patient verbalized plan of care as described above and he needs to follow up with Pulmonary. Address, phone number, and everything will be given to the patient to follow up in 2 weeks for further studies needed. MEDICATIONS: See med reconciliation form including the oral Levaquin given and written by Pulmonary. DISPOSITION: Home. CONDITION: Stable. DIET: Heart healthy. In the event of any worsening symptoms, the patient advised to come back to the ED for further evaluation. Discharge summary took greater than 35 minutes. MD GLORIA Barraza/ZEINA /[id number]
== END 2019-04-04 12:22 | disposition home or self-care (01) | DRG 871 ==
LOC: FSED 17:00 → ERHOLD 17:58 → IMCU 20:25 → OBSVTOIN 04-02 13:08 → MED/SURG3 04-02 14:05
PROVIDERS: ADMIT Internal Medicine; ATTEND Internal Medicine
DX: A41.9 Sepsis, unspecified organism (principal); J18.9 Pneumonia, unspecified organism; M62.82 Rhabdomyolysis; R07.89 Other chest pain; F90.9 Attention-deficit hyperactivity disorder, unspecified type; E66.9 Obesity, unspecified; Z68.38 Body mass index [BMI] 38.0-38.9, adult; F95.9 Tic disorder, unspecified; Z86.718 Personal history of other venous thrombosis and embolism; F41.9 Anxiety disorder, unspecified; I10 Essential (primary) hypertension; I27.20 Pulmonary hypertension, unspecified
CPT/HCPCS: 36415; 71046; 71260; 80048; 80053; 80061; 80307; 81001; 82150; 82550; 82553; 83690; 83880; 84145; 84443; 84484; 85025; 85379; 85651; 86140; 93005; 93306; 93970; 99284; G0378; J0456; J0696; J1650; J2270; J7030; J7050; Q9967

== ENCOUNTER → 2019-07-22 | Outpatient (CLI) | payer BC ==
[~2019-07-22] MED LIST changes: +ADDERALL 20 MG20 MG PO; +LEVAQUIN500 MG PO; +PROAIR HFA INH8.5 GM INH
--- NOTE | 2019-07-22 10:39 | Diagnostic Imaging Report ---
Chest, 2 views, 07/22/2019. History: Shortness of breath. Comparison: 03/31/2019. Findings: The cardiomediastinal silhouette and pulmonary vasculature are mildly prominent. The lungs are clear without evidence of consolidation or pleural effusion. There are no acute osseous or soft tissue abnormalities. Impression: Mild cardiomegaly and vascular congestion. Signed by: Koko Romo on 07/22/2019 10:36 AM
[2019-07-22 10:42] LABS: BASOPHILS # (AUTO) 0.1 (0.0-0.1); BASOPHILS % 0.4 % (0.0-1.0); EOSINOPHILS # (AUTO) 0.1 (0.0-0.4); EOSINOPHILS % 1.1 % (0.0-6.0); HEMATOCRIT 40.4 % (38.2-49.6); HEMOGLOBIN 13.5 g/dL (14.0-18.0); LYMPHOCYTES # (AUTO) 2.1 (1.0-3.2); LYMPHOCYTES % 16.9 % (18.0-39.1); MEAN CORPUSCULAR HEMOGLOBIN 28.1 pg (28-32); MEAN CORPUSCULAR HGB CONC 33.4 g/dL (31-35); MONOCYTES # (AUTO) 1.5 (0.2-0.8); MONOCYTES % 12.7 % (4.4-11.3); NEUTROPHILS # (AUTO) 8.3 (2.1-6.9); NEUTROPHILS % 68.2 % (38.7-80.0); PLATELET COUNT 328 x10e3/uL (140-360); RED BLOOD COUNT 4.81 x10e6/uL (4.3-5.7); RED CELL DISTRIBUTION WIDTH 13.2 % (11.7-14.4)
[2019-07-22 11:10] LABS: ALANINE AMINOTRANSFERASE 29 IU/L (0-55); ALBUMIN 3.5 g/dL (3.5-5.0); ALBUMIN/GLOBULIN RATIO 0.9 (0.8-2.0); ALKALINE PHOSPHATASE 90 IU/L (40-150); ANION GAP 13.3 mmol/L (8-16); BLOOD UREA NITROGEN 12 mg/dL (7-26); BUN/CREATININE RATIO 15 (6-25); CALCIUM 9.6 mg/dL (8.4-10.2); CARBON DIOXIDE 24 mmol/L (22-29); CHLORIDE 102 mmol/L (98-107); CREATINE KINASE 431 IU/L (30-200); EST GLOMERULAR FILTRATION RATE > 60 ML/MIN (60-); GLUCOSE 99 mg/dL (74-118); LACTATE DEHYDROGENASE 170 IU/L (125-220); POTASSIUM 4.3 mmol/L (3.5-5.1); SODIUM 135 mmol/L (136-145)
[2019-07-22 11:32] LABS: ERYTHROCYTE SEDIMENTATION RATE 40 mm/hr (0-13)
== END ==
LOC: RAD 09:46
PROVIDERS: ATTEND Internal Medicine Critical Care Medicine
DX: R50.9 Fever, unspecified (principal); R09.02 Hypoxemia; I27.20 Pulmonary hypertension, unspecified; I82.409 Acute embolism and thrombosis of unspecified deep veins of unspecified lower extremity; G47.33 Obstructive sleep apnea (adult) (pediatric); J30.9 Allergic rhinitis, unspecified
CPT/HCPCS: 36415; 71046; 80053; 82085; 82550; 83615; 85025; 85379; 85651; 86039; 86140; 86431; 87400